=== PATIENT | female | born 1975 ===

== ENCOUNTER 2016-08-20 09:16 | Outpatient (CLI) | payer OTHER ==
--- NOTE | 2016-08-20 11:22 | Ultrasound Report ---
Thyroid sonogram: History: Thyroid cancer restaging. Findings: Right lobe measures 1.8 x 0.6 x 0.6 cm. No mass identified. Left lobe measures 2.4 x 0.7 x 0.8 cm. No mass identified. Isthmus measures 0.2 cm. Impression: Atrophy right and left lobe of thyroid gland. No mass.
== END 2016-08-20 09:17 | disposition home or self-care (01) ==
LOC: SPVWC 09:16
PROVIDERS: ATTEND Internal Medicine Endocrinology, Diabetes & Metabolism
DX: C73 Malignant neoplasm of thyroid gland (principal); E03.4 Atrophy of thyroid (acquired)
CPT/HCPCS: 76536